=== PATIENT | male | born 1940 | race Caucasian/White ===

== ENCOUNTER → 2017-10-09 | Day surgery (SDC) | payer MEDICARE ==
[~2017-10-09] MED LIST: ASPI81TA82 PO; BUPIVACAINE/EPINEPHRINE 0.25% PF 10 ML VIAL ONE; FISH500C PO; HYDROCORTISONE SOD SUCCINATE 100 MG VIAL ONE; ISOSULFAN BLUE 50 MG/5 ML VIAL SQ ONE; LACTATED RINGER'S 1000 ML INJ 1,000 ML ONE; LIDOCAINE 1%/EPINEPHrine 1:100,000 SOLN 30 ML VIAL ONE; LIDOCAINE 1%/EPINEPHrine 1:100,000 SOLN 50 ML VIAL ONE; MIDAZOLAM HCL 2 MG/2 ML VIAL ONE; MINERAL OIL 10 ML VIAL ONE; ONDANSETRON HCL 4 MG/2 ML VIAL IV PUSH ONE; PROPOFOL 200 MG/20 ML AMP IV ONE; SIMV40TA PO; TELM20 PO; ceFAZolin 2 GM PREMIX 50 ML ONE
--- NOTE | 2017-10-09 14:10 | PD.OP ---
cc: Rex Zavala MD Operative Report Date of Surgery: October 09, 2017 Preoperative Diagnosis: Malignant melanoma right shoulder Postoperative Diagnosis: Malignant melanoma right shoulder Procedure: Right axillary sampling and sentinel node biopsy Anesthesia: General with local Surgeon: Rex Zavala Director Of Workforce Development(s): None Operation and Findings: Operative procedure: The patient was brought to the operating room after satisfactory general anesthesia been obtained, the right axilla was prepped and draped in the usual sterile fashion. 1% lidocaine with epinephrine was used to infiltrate the skin for local anesthesia. Small right axillary incision was made transversely carried out sharply through the subcu incision with cautery being used for hemostasis. The incision was deepened into the axilla proper which was opened by incising the clavipectoral fascia by blunt dissection. Using the navigator probe, the area of highest radioactivity was identified. The area of axillar fat pad was grasped with an Allis clamp and dissected free using the harmonic scalpel in 2 separate pieces. The first section of axillary fat pad appear to contain 1 or 2 lymph nodes with minimal radioactivity. The second 1 had the highest radioactive counts and was marked with a silk suture as the right sentinel lymph node. No other palpable abnormalities were noted. Hemostasis was checked for and found to be satisfactory. The subcutaneous tissue was closed with interrupted 3-0 Vicryl suture and skin closed with interrupted 4-0 PDS subcu technicians. Steri-Strips were applied and the patient then underwent further procedures as dictated separately by Dr. Hand. The instrument, sponge, needle counts were reported as being correct at the end of my portion of the procedure. Rex Zavala MD October 09, 2017 14:10
--- NOTE | 2017-10-09 14:56 | PD.OP ---
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 Patient and family underwent explanation of surgery including fascia to cover the lymphatics, margin of approx 2 cm from the borders of the lesion. Possible risks and complications such as bleeding, infection and graft failure were discussed in general terms and [facility] brochures and melanoma info from [facility] website was printed and given to them. No additional questions or concerns voiced by patient. Patient was brought to the OR after preop markings in the holding area. anesthesia started. Dr. Zavala started with the axillary node work and will be dictated by him. I started with the right ear - the area was marked with a 6 to 8 mm clean skin margin, injected with diluted mix of lidocaine with epi and saline. final excision 4x3 cm. Excised down to the perichondrium, leaving the perichondrium intact. Hemostasis with low power bovie only. Ear was covered with wet gauze. specimen marked suture superior. right shoulder melanoma was then injected approx 50 cc of the mix. Margins taken 2 + cm from the lesion outlines. Final excision diameter 6.5 cm. tissues taken down to and below the fascia and excised the entire specimen. Suture marked lateral. hemostasis completed with bovie. Dr. Zavala had finished his part by this time. right thigh was was exposed and prepped with betadine. drapes applied. STSG inch thickness, 2 cm guard, approx 10 cm long strip taken and meshed to 1.5 ratio Donor site injected with dilute mix of local anesthetic as well. STSG Graft applied to the right shoulder with chai and another piece applied to the right ear with 4/0 chromic running sutures., Dressed with Xeroform, Telfa and pieces of wet cotton roll to fill the defect on the shoulder - then layered cotton stapled, and then gauze./ tape Right ear - xeroform, layered wet cotton and gauze dressing - dressings secured with chai to skin, gauze and tape right thigh - xeroform, layered wet cotton, gauze and tegaderm film Patient remained stable - minimal blood loss. less than 5 cc, No complications. Diego Hand MD October 09, 2017 14:56
== END | disposition home or self-care (01) ==
LOC: ESDC 06:25
PROVIDERS: ATTEND Surgery
DX: C43.61 Malignant melanoma of right upper limb, including shoulder (principal); C44.222 Squamous cell carcinoma of skin of right ear and external auricular canal
CPT/HCPCS: 00300; 00400; 11606; 11644; 15100; 15120; 38525; 88305; 88307; 88341; 88342; J0690; J1720; J2250; J2405; J3010; J7120; Q9968